=== PATIENT | female | born 1985 | race Caucasian/White ===

== ENCOUNTER 2017-08-18 23:21 | Emergency (ER) | payer MEDICAID ==
--- NOTE | 2017-08-18 23:43 | CPEKG ---
Heart Rate: 85 RR Interval: 706 P-R Interval: 140 QRSD Interval: 76 QT Interval: 364 QTC Interval: 433 P Lamont: 71 QRS Lamont: 71 T Wave Lamont: 36 EKG Severity - OTHERWISE NORMAL ECG - EKG Impression: SINUS RHYTHM EKG Impression: ABERRANT COMPLEX, POSSIBLY SUPRAVENTRICULAR Electronically Signed By: Modesto Holcomb 19-Aug-2017 00:58:32
--- NOTE | 2017-08-18 23:54 | EDPHY ---
H & P Stated Complaint: cp/sob since approx 1830 Time Seen by Provider: 08/18/17 23:36 HPI/ROS: Chief Complaint: Chest pain HPI: 32-year-old woman started having substernal chest pain about 630 tonight. Worse with deep inspiration. Has been constant since that time. It is not positional. Does have a history of similar episodes in the past. Pain is about a 6/10 and constant. Has had some mild shortness of breath. No leg pain or swelling. No periods of immobility. She is a smoker. She is not on oral contraceptives. No family history of blood clotting disorders. Does have a family history of coronary artery disease but not at a young age. No nausea or vomiting. It is nonradiating. It is described as a dull pressure. ROS: 10 point Review of Systems is negative except as noted in the HPI. PMH: Irritable bowel disease Social History: Positive smoking, recently quit drinking alcohol, marijuana for IBS Family History: non-contributory Physical Exam: Gen: Awake, Alert, No Distress HEENT: Nose: no rhinorrhea Eyes: PERRLA, EOMI Mouth: Moist mucosa Neck: Supple, no JVD Chest: nontender, lungs clear to auscultation Heart: S1, S2 normal, no murmur Abd: Soft, non-tender, no guarding Back: no CVA tenderness, no midline tenderness Ext: no edema, non-tender Skin: no rash Neuro: CN II-XII intact, Sensation grossly intact, Strength 5/5 in bilateral upper and lower extremities - Medical/Surgical History Hx Asthma: No Hx Chronic Respiratory Disease: No Hx Diabetes: No Hx Cardiac Disease: No Hx Renal Disease: No Hx Cirrhosis: No Hx Alcoholism: Yes Hx HIV/AIDS: No Hx Splenectomy or Spleen Trauma: No Other PMH: etoh abuse - current sobriety 08/2017, ibs, tubal ligation, c section - Social History Smoking Status: Current every day smoker Constitutional: Initial Vital Signs Temperature (C) 36.8 C 08/18/17 23:27 Heart Rate 94 08/18/17 23:27 Respiratory Rate 16 08/18/17 23:27 Blood Pressure 136/107 H 08/18/17 23:27 O2 Sat (%) 100 08/18/17 23:27 O2 Delivery Mode Room Air Allergies/Adverse Reactions: gluten Allergy (Verified 08/18/17 23:31) Milk Containing Products [dairy] Allergy (Verified 08/18/17 23:31) Home Medications: Medication Instructions Recorded NK [No Known Home Meds] 08/18/17 Medical Decision Making - Diagnostics EKG Interpretation: ECG time 11:41 p.m., sinus rhythm with a rate of 85, normal axis, normal intervals, no acute ST or T-wave changes. Impression: Normal ECG. Imaging Results: Chest x-ray is negative per my interpretation. Imaging: I viewed and interpreted images myself ED Course/Re-evaluation: 32-year-old woman presenting with chest pain for the last 6 hr. ECG is normal. Chest x-ray is negative. Troponin is normal. D-dimer is normal. Patient is improved after GI cocktail. Symptoms consistent gastrointestinal cause. Will discharge on [id number]-nzkkyke antacid medications, follow up with doctor when she returns back to [facility]. - Data Points Laboratory Results: Laboratory Results 08/18/17 23:47 08/18/17 23:47 08/18/17 08/18/17 08/18/17 23:47 23:47 23:47 WBC RBC Hgb Hct MCV MCH MCHC RDW Plt Count MPV Neut % (Auto) Lymph % (Auto) Wilkin % (Auto) Eos % (Auto) Baso % (Auto) Nucleat RBC Rel Count Absolute Neuts (auto) Absolute Lymphs (auto) Absolute Monos (auto) Absolute Eos (auto) Absolute Basos (auto) Absolute Nucleated RBC Immature Gran % Immature Gran # D-Dimer 0.33 ug/mLFEU ug/mLFEU (0.00-0.50) Sodium 138 mEq/L mEq/L (135-145) Potassium 4.1 mEq/L mEq/L (3.5-5.2) Chloride 105 mEq/L mEq/L (97-110) Carbon Dioxide 19 mEq/l L mEq/l (22-31) Anion Gap 14 mEq/L mEq/L (8-16) BUN 9 mg/dL mg/dL (7-23) Creatinine 0.6 mg/dL mg/dL (0.6-1.0) Estimated GFR > 60 Glucose 85 mg/dL mg/dL (70-100) Calcium 9.3 mg/dL mg/dL (8.5-10.4) Troponin I < 0.012 ng/mL ng/mL (0.000-0.034) Beta HCG, Qual NEGATIVE 08/18/17 23:47 WBC 7.15 10^3/uL 10^3/uL (3.80-9.50) RBC 4.41 10^6/uL 10^6/uL (4.18-5.33) Hgb 14.0 g/dL g/dL (12.6-16.3) Hct 40.2 % % (38.0-47.0) MCV 91.2 fL fL (81.5-99.8) MCH 31.7 pg pg (27.9-34.1) MCHC 34.8 g/dL g/dL (32.4-36.7) RDW 12.2 % % (11.5-15.2) Plt Count 203 10^3/uL 10^3/uL (150-400) MPV 10.3 fL fL (8.7-11.7) Neut % (Auto) 56.2 % % (39.3-74.2) Lymph % (Auto) 29.4 % % (15.0-45.0) Wilkin % (Auto) 10.9 % % (4.5-13.0) Eos % (Auto) 2.8 % % (0.6-7.6) Baso % (Auto) 0.6 % % (0.3-1.7) Nucleat RBC Rel Count 0.0 % % (0.0-0.2) Absolute Neuts (auto) 4.02 10^3/uL 10^3/uL (1.70-6.50) Absolute Lymphs (auto) 2.10 10^3/uL 10^3/uL (1.00-3.00) Absolute Monos (auto) 0.78 10^3/uL 10^3/uL (0.30-0.80) Absolute Eos (auto) 0.20 10^3/uL 10^3/uL (0.03-0.40) Absolute Basos (auto) 0.04 10^3/uL 10^3/uL (0.02-0.10) Absolute Nucleated RBC 0.00 10^3/uL 10^3/uL (0-0.01) Immature Gran % 0.1 % % (0.0-1.1) Immature Gran # 0.01 10^3/uL 10^3/uL (0.00-0.10) D-Dimer Sodium Potassium Chloride Carbon Dioxide Anion Gap BUN Creatinine Estimated GFR Glucose Calcium Troponin I Beta HCG, Qual Medications Given: Discontinued Medications Al Hydroxide/Mg Hydroxide (Maalox Susp) 30 ml PO ONCE ONE Stop: 08/19/17 00:49 Last Admin: 08/19/17 01:02 Dose: 30 ml Ketorolac Tromethamine (Toradol) 15 mg IVP EDNOW ONE Stop: 08/19/17 00:20 Last Admin: 08/19/17 00:22 Dose: 15 mg Lidocaine (Lidocaine 2% Viscous) 15 ml PO ONCE ONE Stop: 08/19/17 00:49 Last Admin: 08/19/17 01:02 Dose: 15 ml Departure - Departure Disposition: Home, Routine, Self-Care Clinical Impression: GERD (gastroesophageal reflux disease) Condition: Good Instructions: Gastroesophageal Reflux Disease (ED), Diet for Stomach Ulcers and Gastritis (ED) Additional Instructions: You may take bysc-onl-mrkgsca antacid medications such as famotidine. Follow up with primary care when you returns back home to [place]. Return to the emergency depart for worsening chest pain, shortness of breath, fevers, chills, or any other concerns. Referrals: NONE *PRIMARY CARE P,. [Primary Care Provider] - As per Instructions
[2017-08-18 23:56] LABS: PLATELET COUNT 203 10^3/uL (150-400)
[2017-08-19] MEDS ORDERED: KETOROLAC 15 MG/1 ML SDV IVP ONE (00:19)
[2017-08-19] MEDS ORDERED: LIDOCAINE 2% VISCOUS 15 ML UDCUP PO ONE (00:48)
[2017-08-19] MEDS ORDERED: MAG HYDROX/AL HYDROX/SIMETH 30 ML UDCUP PO ONE (00:48)
[2017-08-19 01:13] VITALS: BP 116/73
== END 2017-08-19 01:16 | disposition home or self-care (01) ==
DX: K21.9 Gastro-esophageal reflux disease without esophagitis (principal); F17.200 Nicotine dependence, unspecified, uncomplicated
CPT/HCPCS: 96374; J1885